=== PATIENT | female | born 1995 | race Caucasian/White ===

== ENCOUNTER 2016-08-23 00:13 | Emergency (ER) | payer MEDICAID ==
[~2016-08-23] VITALS: Ht 165.1 cm; Wt 87.3 kg
[2016-08-23] MEDS ORDERED: SODIUM CHLORIDE 0.9% 1,000ML IVBOLUS ONE (00:30)
[2016-08-23] MEDS ORDERED: ONDANSETRON 2MG/ML, 2ML IVPush ONE (00:30)
[2016-08-23 00:49] LABS: HEMOGLOBIN 12.8 g/dL (11.7-16.4)
[2016-08-23 01:03] LABS: ASPARTATE AMINO TRANSFERASE 12 U/L (15-37); BLOOD UREA NITROGEN 14 mg/dL (7-18)
[2016-08-23] MEDS ORDERED: ONDANSETRON 2MG/ML, 2ML ONE (01:15)
[2016-08-23 02:30] VITALS: BP 118/67
== END 2016-08-23 02:32 | disposition home or self-care (01) ==
LOC: ED 01:35
DX: O21.9 Vomiting of pregnancy, unspecified (principal); O26.891 Other specified pregnancy related conditions, first trimester; R10.9 Unspecified abdominal pain; H57.8 Other specified disorders of eye and adnexa; Z3A.09 9 weeks gestation of pregnancy
CPT/HCPCS: 36415; 76801; 80053; 81003; 83690; 84702; 85025; 96361; 96374; 99285; J2405; J7030

== ENCOUNTER 2016-09-04 20:45 | Emergency (ER) | payer MEDICAID ==
[~2016-09-04] VITALS: Ht 165.1 cm; Wt 85.5 kg
[2016-09-04 23:10] LABS: BLOOD UREA NITROGEN 9 mg/dL (7-18)
[2016-09-04 23:23] VITALS: BP 109/65
== END 2016-09-04 23:26 | disposition home or self-care (01) ==
LOC: ED 22:10
DX: Z32.01 Encounter for pregnancy test, result positive (principal)
CPT/HCPCS: 36415; 76801; 80048; 81001; 82040; 85025

== ENCOUNTER 2016-11-02 18:23 | Emergency (ER) | payer MEDICAID ==
[~2016-11-02] VITALS: Ht 162.6 cm; Wt 90.0 kg
[2016-11-02 19:12] LABS: BLOOD UREA NITROGEN 12 mg/dL (7-18)
[2016-11-02 19:59] LABS: PATH.CAST-FLAG NOT PRESENT; SPERM-FLAG NOT PRESENT; SRC-FLAG NOT PRESENT; XTAL-FLAG NOT PRESENT; YLC-FLAG NOT PRESENT
[2016-11-02 21:13] VITALS: BP 120/79
== END 2016-11-02 21:38 | disposition home or self-care (01) ==
LOC: ED 21:20
DX: O99.352 Diseases of the nervous system complicating pregnancy, second trimester (principal); G44.52 New daily persistent headache (NDPH); Z3A.20 20 weeks gestation of pregnancy
CPT/HCPCS: 36415; 70450; 80048; 81001; 85025; 99285

== ENCOUNTER 2018-01-26 11:12 | Emergency (ER) | payer MEDICAID ==
[~2018-01-26] VITALS: Ht 162.6 cm; Wt 101.0 kg
[2018-01-26 11:17] VITALS: BP 146/84
[2018-01-26 12:17] LABS: MICROSCOPIC INDICATED
[2018-01-26 12:26] LABS: BASOPHILS # (AUTO) 0.02 x10^3/uL (0-0.1); BASOPHILS % (AUTO) 0 % (0-1); EOSINOPHILS # (AUTO) 0.08 x10^3/uL (0-0.4); EOSINOPHILS % (AUTO) 1 % (1-7); LYMPHOCYTES # (AUTO) 1.46 x10^3/uL (1-3.4); LYMPHOCYTES % (AUTO) 20 % (22-44); MD NO; MEAN CORPUSCULAR HEMOGLOBIN 27.9 pg (27.0-34.8); MEAN CORPUSCULAR HGB CONC 33.9 g/dL (32.4-35.8); MEAN CORPUSCULAR VOLUME 82.3 fL (80-100); MEAN PLATELET VOLUME 8.5 fL (7.4-10.4); MONOCYTES # (AUTO) 0.56 x10^3/uL (0.2-0.8); MONOCYTES % (AUTO) 8 % (2-9); NEUTROPHILS # (AUTO) 5.18 x10^3/uL (1.8-6.8); NEUTROPHILS % (AUTO) 71 % (42-75); PLATELET COUNT 258 x10^3/uL (130-400); RED BLOOD COUNT 4.81 x10^6/uL (3.82-5.3); RED CELL DISTRIBUTION WIDTH 13.6 % (9.6-15.2)
[2018-01-26 12:37] LABS: CULTURE INDICATED? YES
[2018-01-26 12:38] LABS: ALANINE AMINOTRANSFERASE 21 U/L (12-78); ALBUMIN 3.3 g/dL (3.4-5.0); ANION GAP 5 mmol/L (5-15); CHLORIDE 109 mmol/L (98-107)
[2018-01-26 12:43] LABS: ALKALINE PHOSPHATASE 81 U/L (45-117); BILIRUBIN,TOTAL 0.6 mg/dL (0.2-1.0); CREATININE 0.53 mg/dL (0.55-1.02); TOTAL PROTEIN 6.9 g/dL (6.4-8.2)
[2018-01-26 14:18] LABS: CLOSTRIDIUM DIFFICILE ANTIGEN NEGATIVE; CLOSTRIDIUM DIFFICILE TOXIN NEGATIVE (Negative)
== END 2018-01-26 14:09 | disposition home or self-care (01) ==
LOC: ED 13:50
DX: N30.00 Acute cystitis without hematuria (principal); R19.7 Diarrhea, unspecified; R11.10 Vomiting, unspecified
CPT/HCPCS: 36415; 74021; 80053; 81001; 83690; 84703; 85025; 87086; 87324; 89055; 99285

== ENCOUNTER 2018-03-22 01:37 | Emergency (ER) | payer MEDICAID ==
[~2018-03-22] VITALS: Ht 165.1 cm; Wt 104.0 kg
[2018-03-22 01:39] VITALS: BP 134/92
[2018-03-22] MEDS ORDERED: LIDOCAINE-MPF 1%, 5ML ONE (01:55)
[2018-03-22] MEDS ORDERED: DIPH,PERTUSS(ACELL),TET VAC/PF 0.5 ML IM-VACC ONE ×2 (02:03→02:30)
[2018-03-22] MEDS ORDERED: LIDOCAINE-MPF 1%, 5ML INFIL ONE (02:30)
== END 2018-03-22 02:40 | disposition home or self-care (01) ==
LOC: ED 02:13
DX: S91.342A Puncture wound with foreign body, left foot, initial encounter (principal); W45.8XXA Other foreign body or object entering through skin, initial encounter; Y93.89 Activity, other specified; Y92.89 Other specified places as the place of occurrence of the external cause; Y99.8 Other external cause status
CPT/HCPCS: 10120; 90471; 90715; 99284

== ENCOUNTER 2019-03-28 11:59 | Emergency (ER) | payer MEDICAID ==
[~2019-03-28] VITALS: Ht 162.6 cm; Wt 102.0 kg
[2019-03-28 12:34] LABS: ANION GAP 7 mmol/L (5-15); BASOPHILS # (AUTO) 0.02 x10^3/uL (0-0.1); BASOPHILS % (AUTO) 0 % (0-1); CALCIUM 8.4 mg/dL (8.5-10.1); CHLORIDE 108 mmol/L (98-107); EOSINOPHILS # (AUTO) 0.14 x10^3/uL (0-0.4); EOSINOPHILS % (AUTO) 1 % (1-7); LYMPHOCYTES # (AUTO) 1.45 x10^3/uL (1-3.4); LYMPHOCYTES % (AUTO) 14 % (22-44); MD NO; MEAN CORPUSCULAR HEMOGLOBIN 28.3 pg (27.0-34.8); MEAN CORPUSCULAR HGB CONC 32.5 g/dL (32.4-35.8); MEAN CORPUSCULAR VOLUME 87.3 fL (80-100); MEAN PLATELET VOLUME 9.1 fL (7.4-10.4); MONOCYTES # (AUTO) 0.36 x10^3/uL (0.2-0.8); MONOCYTES % (AUTO) 3 % (2-9); NEUTROPHILS # (AUTO) 8.53 x10^3/uL (1.8-6.8); NEUTROPHILS % (AUTO) 81 % (42-75); PLATELET COUNT 263 x10^3/uL (130-400); RED BLOOD COUNT 4.65 x10^6/uL (3.82-5.3)
--- NOTE | 2019-03-28 12:36 | NUR ---
PT IN IMAGING AT THIS TIME.
[2019-03-28 12:37] LABS: ALANINE AMINOTRANSFERASE 30 U/L (12-78); ALKALINE PHOSPHATASE 67 U/L (45-117); BILIRUBIN,TOTAL 0.2 mg/dL (0.2-1.0); CREATININE 0.43 mg/dL (0.55-1.02); TOTAL PROTEIN 6.7 g/dL (6.4-8.2)
--- NOTE | 2019-03-28 13:15 | NUR ---
late entry d/t patient care: no UA needed per EDMD Lehman.
--- NOTE | 2019-03-28 13:30 | NUR ---
report taken from BAIRON Ocasio. This RN went to dc patient, and upon initial meeting noted that right pupil is larger than left. Pt notes this is not her baseline and that she has had intermittent dizziness, headaches and right sided blurred vision x 2 weeks. pt is neurologically intact. MD Lehman informed.
[2019-03-28 14:06] VITALS: BP 141/84
--- NOTE | 2019-03-28 14:45 | NUR ---
pt to MRI at this time, pt a&o, resps even and unlabored, nadn. report given to BAIRON Smith.
--- NOTE | 2019-03-28 14:51 | NUR ---
REPORT FROM [facility]
--- NOTE | 2019-03-28 15:48 | NUR ---
PT AMBULATED WE STEADY GAIT FOR UA.
--- NOTE | 2019-03-28 15:59 | NUR ---
Patient/Caregiver given discharge instructions and they have confirmed that they understand the instructions. Patient ambulatory with steady gait.
[2019-03-28 16:08] LABS: MICROSCOPIC AUTO
[2019-03-28 16:10] LABS: CULTURE INDICATED? YES
== END 2019-03-28 16:21 | disposition home or self-care (01) ==
LOC: ED 15:45
DX: O99.612 Diseases of the digestive system complicating pregnancy, second trimester (principal); K80.70 Calculus of gallbladder and bile duct without cholecystitis without obstruction; Z3A.15 15 weeks gestation of pregnancy
CPT/HCPCS: 36415; 70544; 70551; 76700; 80053; 81001; 83690; 85025; 87086; 99284

== ENCOUNTER 2020-11-27 11:47 | Day surgery (SDC) | payer MEDICAID ==
[~2020-11-27] VITALS: Ht 165.1 cm; Wt 104.9 kg
[2020-11-27 12:26] VITALS: BP 134/94
[2020-11-27] MEDS ORDERED: CHLORHEXIDINE 15 ML UDC PO ONE (12:30)
[2020-11-27] MEDS ORDERED: CHLORHEXIDINE 15 ML UDC ONE (12:30)
[2020-11-27] MEDS ORDERED: LACTATED RINGERS 1,000 ML IV SCH (12:30)
[2020-11-27] MEDS ORDERED: FENTANYL PF 250 MCG/5ML ONE (12:37)
[2020-11-27] MEDS ORDERED: MIDAZOLAM 1 MG/ML, 2ML ONE (12:37)
[2020-11-27] MEDS ORDERED: KETOROLAC 30 MG/1 ML ONE (12:38)
[2020-11-27] MEDS ORDERED: CEFOTETAN 2 GM ONE (12:38)
[2020-11-27] MEDS ORDERED: PROPOFOL 10 MG/ML, 20ML ONE (12:39)
[2020-11-27] MEDS ORDERED: GLYCOPYRROLATE 0.2MG/1ML, 5ML ONE (12:39)
[2020-11-27] MEDS ORDERED: DEXAMETHASONE 4 MG/ML, 1ML ONE (12:39)
[2020-11-27] MEDS ORDERED: ONDANSETRON 2MG/ML, 2ML ONE (12:39)
[2020-11-27] MEDS ORDERED: NEOSTIGMINE 1 MG/ML, 10ML ONE (12:39)
[2020-11-27] MEDS ORDERED: ROCURONIUM 10MG/ML,5ML ONE (12:39)
[2020-11-27 12:46] LABS: MICROSCOPIC AUTO
[2020-11-27] MEDS ORDERED: BUPIVACAINE/PF 0.5% ONE (12:49)
[2020-11-27] MEDS ORDERED: EPINEPHRINE 1 MG/ML, 1ML ONE (12:49)
[2020-11-27] MEDS ORDERED: INDOCYANINE GREEN 25 MG VIAL ONE (12:59)
[2020-11-27] MEDS ORDERED: LABETALOL 5MG/ML, 20ML IV PRN (13:00)
[2020-11-27] MEDS ORDERED: HYDROmorphone 1 MG/ML, 1ML INJ IVPush PRN (13:00)
[2020-11-27] MEDS ORDERED: HALOPERIDOL 5 MG/ML IV PRN (13:00)
[2020-11-27] MEDS ORDERED: FENTANYL PF 100 MCG/2ML IV PRN (13:00)
[2020-11-27] MEDS ORDERED: ACETAMINOPHEN 325 MG TABLET PO PRN (13:00)
[2020-11-27] MEDS ORDERED: MEPERIDINE/PF 25MG/0.5ML IVPush PRN (13:00)
[2020-11-27] MEDS ORDERED: INDOCYANINE GREEN 25 MG VIAL IVPush ONE (13:00)
[2020-11-27] MEDS ORDERED: PROMETHAZINE 25 MG/ML, 1ML IVPush PRN (13:00)
[2020-11-27] MEDS ORDERED: hydrALAzine 20 MG/ML, 1ML IV PRN (13:00)
[2020-11-27] MEDS ORDERED: SCOPOLAMINE 1MG PATCH TD ONE (13:11)
[2020-11-27] MEDS ORDERED: SCOPOLAMINE 1MG PATCH TD SCH (13:30)
[2020-11-27] MEDS ORDERED: FENTANYL PF 100 MCG/2ML ONE ×2 (13:48→14:11)
[2020-11-27] MEDS ORDERED: ONDA4TAB7 PO (14:37)
[2020-11-27] MEDS ORDERED: HYDR-2214 PO (14:37)
[2020-11-27] MEDS ORDERED: IBUP-1223 PO (14:37)
[2020-11-27] MEDS ORDERED: GABA-826 PO (14:37)
[2020-11-27] MEDS ORDERED: morphine SULFATE 10 MG/ML, 1ML IVPush PRN (15:00)
[2020-11-27] MEDS ORDERED: HYDROcodone/APAP 5/325 TABLET PO PRN (15:00)
[2020-11-27] MEDS ORDERED: ONDANSETRON 2MG/ML, 2ML IVPush PRN (15:00)
[2020-11-27] MEDS ORDERED: KETOROLAC 30 MG/1 ML IVPush PRN (15:00)
[2020-11-27] MEDS ORDERED: ACETAMINOPHEN 650 MG/20.3 ML UDC ONE (15:07)
[2020-11-27] MEDS ORDERED: OXYcodone 5 MG/5 ML ORAL.SOL UDC ONE (15:07)
[2020-11-27] MEDS: OXYcodone 5 MG/5 ML ORAL.SOL UDC PO PRN ×2 (15:12→17:52)
== END 2020-11-27 18:55 | disposition home or self-care (01) ==
LOC: OUT 11:47
PROVIDERS: ATTEND Surgery
DX: K80.10 Calculus of gallbladder with chronic cholecystitis without obstruction (principal); K82.8 Other specified diseases of gallbladder; I10 Essential (primary) hypertension; Z20.822 Contact with and (suspected) exposure to COVID-19; Z79.899 Other long term (current) drug therapy
CPT/HCPCS: 47563; 74300; 81001; 81025; 87086; 88304; J0171; J1100; J1885; J2250; J2405; J2704; J2710; J3010; J7120; S2900; U0003; U0005

== ENCOUNTER 2020-11-28 21:30 | Emergency (ER) | payer MEDICAID ==
[~2020-11-28] VITALS: Ht 165.1 cm; Wt 106.0 kg
[~2020-11-28 21:30] MED LIST: GABA-826 PO; HYDR-2214 PO; IBUP-1223 PO; ONDA4TAB7 PO
[2020-11-28 23:32] LABS: BASOPHILS % (AUTO) 1 % (0-1); EOSINOPHILS % (AUTO) 1 % (1-7); LYMPHOCYTES % (AUTO) 27 % (22-44); MEAN CORPUSCULAR HEMOGLOBIN 27.1 pg (27.0-34.8); MEAN CORPUSCULAR HGB CONC 32.6 g/dL (32.4-35.8); MEAN PLATELET VOLUME 8.8 fL (7.4-10.4); MONOCYTES % (AUTO) 6 % (2-9); NEUTROPHILS % (AUTO) 66 % (42-75); PLATELET COUNT 314 x10^3/uL (130-400); RED BLOOD COUNT 4.82 x10^6/uL (3.82-5.3)
[2020-11-28 23:44] LABS: ALANINE AMINOTRANSFERASE 65 U/L (12-78); ALBUMIN 3.9 g/dL (3.4-5.0); ANION GAP 3 mmol/L (5-15); CHLORIDE 106 mmol/L (98-107); CREATININE 0.71 mg/dL (0.55-1.02)
[2020-11-28 23:46] LABS: ALKALINE PHOSPHATASE 83 U/L (45-117); BILIRUBIN,TOTAL 0.3 mg/dL (0.2-1.0); TOTAL PROTEIN 7.7 g/dL (6.4-8.2)
[2020-11-29] MEDS ORDERED: ONDANSETRON 2MG/ML, 2ML IVPush ONE (00:30)
[2020-11-29] MEDS ORDERED: SODIUM CHLORIDE FLUSH 10ML SYR IVF ONE (00:30)
[2020-11-29] MEDS ORDERED: MORPHINE SULFATE 4 MG/ML, 1ML IVPush PRN (00:30)
[2020-11-29] MEDS ORDERED: FAMOTIDINE 20 MG/2 ML IVPush ONE (00:30)
[2020-11-29] MEDS ORDERED: SODIUM CHLORIDE 0.9% 1,000ML IVBOLUS ONE (00:30)
[2020-11-29] MEDS ORDERED: ONDANSETRON 2MG/ML, 2ML ONE (00:55)
[2020-11-29] MEDS ORDERED: KETOROLAC 30 MG/1 ML ONE (00:55)
[2020-11-29] MEDS ORDERED: FAMOTIDINE 20 MG/2 ML ONE (00:56)
[2020-11-29] MEDS ORDERED: KETOROLAC 30 MG/1 ML IVPush ONE (01:00)
--- NOTE | 2020-11-29 01:04 | NUR ---
piv placed and medicated per mat pt in nad
[2020-11-29 01:47] VITALS: BP 103/43
== END 2020-11-29 02:54 | disposition home or self-care (01) ==
LOC: ED 23:00
DX: R10.11 Right upper quadrant pain (principal); R10.13 Epigastric pain; R42 Dizziness and giddiness; R11.0 Nausea
CPT/HCPCS: 36415; 80053; 83690; 85025; 96374; 96375; 99284; J1885; J2405; J7030